=== PATIENT | female | born 1980 | race American Indian/Alaskan Native ===

== ENCOUNTER 2020-07-03 23:35 | Emergency (ER) | payer MEDICAID ==
--- NOTE | 2020-07-03 23:58 | Emergency Department Report ---
ED Allergic Reaction HPI - General Stated complaint: ALLERGIC REACTIONS Time Seen by Provider: 07/03/20 23:51 Source: family, EMS Limitations: Altered Mental Status - History of Present Illness Initial Comments: Chief complaint: Possible allergic reaction HPI: This is a 40-year-old female with history of fibromyalgia and gastric sleeve surgery who presents with tingling to the mouth tongue swelling di fficulty swallowing after eating a new dish with palm oil. Patient received Benadryl and epinephrine per EMS. She has been lethargic since. Patient follows limited commands. Only she does not give verbal answers. MD Complaint: other (Tongue swelling mild tingling after eating dish containing palm oil) -: Sudden, This evening Exposure: food Symptoms: difficulty swallowing, orolingual swelling. denies: facial swelling, lip swelling, difficulty breathing Severity: moderate Treatment Prior to Arrival: benadryl, epinephrine - Related Data Home Medications Medication Instructions Recorded Confirmed Last Taken Hydrocodone Bit/Acetaminophen 1 each PO 07/08/13 07/08/13 Unknown [Lortab 5-500 Tablet] predniSONE [Deltasone] 5 mg PO QDAY 07/08/13 07/08/13 Unknown Previous Rx's Medication Instructions Recorded Last Taken Type Cetirizine HCl [ZyrTEC 10mg cap] 10 mg PO 3XW 3 Days #3 capsule 07/04/20 Unknown Rx EPINEPHrine 0.3 mg IJ ONCE PRN #1 auto.injct 07/04/20 Unknown Rx Famotidine [Acid Controller] 20 mg PO BID 3 Days #6 tablet 07/04/20 Unknown Rx Prednisone [predniSONE 10 mg 10 mg PO .TAPER #1 tab.ds.pk 07/04/20 Unknown Rx (6-Day Pack, 21 Tabs)] Allergies Allergy/AdvReac Type Severity Reaction Status Date / Time No Known Allergies Allergy Unverified 07/08/13 21:48 ED Review of Systems ROS: Stated complaint: ALLERGIC REACTIONS Other details as noted in HPI Comment: Unobtainable due to pts medical conditions (Altered mental status) ED Past Medical Hx - Past Medical History Previous Medical History?: Yes Hx Pulmonary Embolism: Yes Additional medical history: HX PE-IN HOSPITAL WITH COUMADIN-LOVENOX 1 MONTH AGO - Social History Smoking Status: Never Smoker Substance Use Type: None - Medications Home Medications: Home Medications Medication Instructions Recorded Confirmed Last Taken Type Hydrocodone Bit/Acetaminophen 1 each PO 07/08/13 07/08/13 Unknown History [Lortab 5-500 Tablet] predniSONE [Deltasone] 5 mg PO QDAY 07/08/13 07/08/13 Unknown History Cetirizine HCl [ZyrTEC 10mg cap] 10 mg PO 3XW 3 Days #3 capsule 07/04/20 Unknown Rx EPINEPHrine 0.3 mg IJ ONCE PRN #1 auto.injct 07/04/20 Unknown Rx Famotidine [Acid Controller] 20 mg PO BID 3 Days #6 tablet 07/04/20 Unknown Rx Prednisone [predniSONE 10 mg 10 mg PO .TAPER #1 tab.ds.pk 07/04/20 Unknown Rx (6-Day Pack, 21 Tabs)] ED Physical Exam - General General appearance: lethargic, other (Patient will make eye contact, she will nod yes or no) - Head Head exam: Present: atraumatic, normocephalic - Eye Eye exam: Present: normal appearance - ENT ENT exam: Present: mucous membranes moist, other (No normal tongue lip size) - Neck Neck exam: Present: normal inspection, full ROM - Respiratory Respiratory exam: Present: normal lung sounds bilaterally. Absent: respiratory distress, wheezes, rales - Cardiovascular Cardiovascular Exam: Present: regular rate, normal rhythm, normal heart sounds. Absent: systolic murmur, diastolic murmur, rubs, gallop - GI/Abdominal GI/Abdominal exam: Present: soft, normal bowel sounds. Absent: distended, tenderness, guarding, rebound - Extremities Exam Extremities exam: Present: normal inspection - Neurological Exam Neurological exam: Present: altered - Psychiatric Psychiatric exam: Present: flat affect - Skin Skin exam: Present: warm, dry, intact, normal color. Absent: rash ED Course Vital Signs 07/03/20 07/03/20 07/04/20 23:52 23:58 00:00 Temperature 97.6 F Pulse Rate 88 86 Respiratory 16 19 Rate Blood Pressure 119/77 119/77 Blood Pressure 119/77 [Right] O2 Sat by Pulse 100 100 100 Oximetry 07/04/20 07/04/20 07/04/20 01:00 02:00 03:00 Temperature Pulse Rate 75 76 73 Respiratory 18 20 25 H Rate Blood Pressure 126/77 121/77 123/78 Blood Pressure [Right] O2 Sat by Pulse 100 100 100 Oximetry 1107/04/20 07/04/20 04:00 05:00 06:00 Temperature Pulse Rate 77 71 66 Respiratory 15 15 15 Rate Blood Pressure 128/84 125/81 121/52 Blood Pressure [Right] O2 Sat by Pulse 100 100 100 Oximetry 07/04/20 07/04/20 07/04/20 07:00 08:00 09:00 Temperature Pulse Rate 73 68 72 Respiratory 15 14 14 Rate Blood Pressure 116/73 121/78 116/77 Blood Pressure [Right] O2 Sat by Pulse 100 100 100 Oximetry 07/04/20 10:00 Temperature Pulse Rate Respiratory Rate Blood Pressure 112/79 Blood Pressure [Right] O2 Sat by Pulse Oximetry ED Medical Decision Making - Lab Data Result diagrams: 07/04/20 00:41 07/04/20 00:41 Laboratory Results - last 24 hr 07/04/20 07/04/20 07/04/20 00:41 00:41 00:41 WBC RBC Hgb Hct MCV MCH MCHC RDW Plt Count Sodium 138 Potassium 4.3 Chloride 104.6 Carbon Dioxide 24 Anion Gap 14 BUN 9 Creatinine 0.8 Estimated GFR > 60 BUN/Creatinine Ratio 11 Glucose 130 H Calcium 9.4 Total Bilirubin 0.30 AST 16 ALT 15 Alkaline Phosphatase 97 Total Protein 7.6 Albumin 4.2 Albumin/Globulin Ratio 1.2 HCG, Qual Salicylates < 0.3 L Acetaminophen 5.0 L Plasma/Serum Alcohol 07/04/20 07/04/20 07/04/20 00:41 00:41 00:41 WBC 4.9 RBC 4.79 Hgb 12.9 Hct 39.2 MCV 82 MCH 27 L MCHC 33 RDW 14.0 Plt Count 190 Sodium Potassium Chloride Carbon Dioxide Anion Gap BUN Creatinine Estimated GFR BUN/Creatinine Ratio Glucose Calcium Total Bilirubin AST ALT Alkaline Phosphatase Total Protein Albumin Albumin/Globulin Ratio HCG, Qual Negative Salicylates Acetaminophen Plasma/Serum Alcohol < 0.01 - Radiology Data Radiology results: report reviewed CT head: No acute findings according to radiology impression - Medical Decision Making Allergic reaction possibly to palm oil: reported throat swelling sensation, mouth tingling per EMS, no urticaria or respiratory distress, no oropharyngeal swelling Altered Mental Status: Suspect sedation or dystonic reaction from diphenhydramine, patient received Cogentin IV ativan without much effect; patient will barely nod in response to questions Will need to await until patient becomes awake before she is able to be dc'd CT head unremarkable CBC chemistry serum toxicology unremarkable. Critical care attestation.: If time is entered above; I have spent that time in minutes in the direct care of this critically ill patient, excluding procedure time. ED Disposition Clinical Impression: Allergic reaction, Sedated due to medication Disposition: DC-01 TO HOME OR SELFCARE Is pt being admited?: No Does the pt Need Aspirin: No Condition: Stable Instructions: Food Allergy Prescriptions: Famotidine [Acid Controller] 20 mg PO BID 3 Days #6 tablet EPINEPHrine 0.3 mg IJ ONCE PRN #1 auto.injct PRN Reason: Allergic Reaction Prednisone [predniSONE 10 mg (6-Day Pack, 21 Tabs)] 10 mg PO .TAPER #1 tab.ds.pk Cetirizine HCl [ZyrTEC 10mg cap] 10 mg PO 3XW 3 Days #3 capsule Referrals: PRIMARY CARE, [Primary Care Provider] - 3-5 Days
[2020-07-04] MEDS ORDERED: SODIUM CHLORIDE 0.9% 1000 ML 1,000 ML IV ONE (00:08)
[2020-07-04] MEDS ORDERED: BENZTROPINE 2 MG/2 ML INJ IM ONE (00:25)
[2020-07-04] MEDS ORDERED: LORazepam 2 MG/ML VIAL IV ONE (00:25)
[2020-07-04 01:03] LABS: Hematocrit 39.2 % (30.3-42.9); Hemoglobin 12.9 gm/dl (10.1-14.3); Mean Corpuscular HGB Conc 33 % (30-34); Mean Corpuscular Volume 82 fl (79-97); Platelet Count 190 K/mm3 (140-440); Red Blood Count 4.79 M/mm3 (3.65-5.03)
[2020-07-04 01:21] LABS: Alanine Aminotransferase 15 units/L (7-56); Albumin 4.2 g/dL (3.9-5); BUN/Creatinine Ratio 11; Blood Urea Nitrogen 9 mg/dL (7-17); Calcium 9.4 mg/dL (8.4-10.2); Hemolysis Index 23
[2020-07-04] MEDS ORDERED: NALOXONE 0.4 MG/1 ML INJ IV ONE (01:25)
--- NOTE | 2020-07-04 01:28 | Cat Scan Report ---
CT head/brain wo con INDICATION: Altered Mental Status. TECHNIQUE: Routine CT head without contrast. All CT scans at this location are performed using CT dos e reduction for ALARA by means of automated exposure control. COMPARISON: None. FINDINGS: BRAIN / INTRACRANIAL CONTENTS: No acute hemorrhage, mass effect, midline shift, or hydrocephalus. No appreciable acute large territorial or lacunar infarct. No chronic infarct or focal atrophy. Normal b rain volume and ventricular/sulcal size for age. ORBITS: No significant abnormality of visualized orbits. SINUSES / MASTOIDS: No significant abnormality of visualized sinuses and mastoid air cells. ADDITIONAL FINDINGS: None. IMPRESSION: 1. No acute intracranial abnormality. Signer Name: Miguel Ross MD Signed: 07/04/2020 1:24 AM Workstation Name: [id number]
[2020-07-04 10:05] VITALS: BP 112/79
== END 2020-07-04 10:05 | disposition home or self-care (01) ==
LOC: ED 23:35
DX: T78.1XXA Other adverse food reactions, not elsewhere classified, initial encounter (principal); R40.4 Transient alteration of awareness; Z79.899 Other long term (current) drug therapy; X58.XXXA Exposure to other specified factors, initial encounter
CPT/HCPCS: 36415; 70450; 80053; 84703; 85027; 96361; 96372; 96374; 96375; 99285; J0515; J2060; J2310; J7030; 80320; G0480